=== PATIENT | female | born 1935 | race Caucasian/White ===

== ENCOUNTER → 2019-11-17 | Outpatient (CLI) | payer MEDICARE | LOC: CARD 09:59 | PROVIDERS: ATTEND Nurse Practitioner Family | DX: I49.9 Cardiac arrhythmia, unspecified (principal); I10 Essential (primary) hypertension; R53.83 Other fatigue; I08.0 Rheumatic disorders of both mitral and aortic valves | CPT/HCPCS: 93306 ==

== ENCOUNTER 2020-01-03 09:49 | Outpatient (RCR) | payer MEDICARE | END 2020-04-02 | disposition home or self-care (01) | LOC: CARD 09:49 | PROVIDERS: ATTEND Internal Medicine Cardiovascular Disease | DX: I34.0 Nonrheumatic mitral (valve) insufficiency (principal); I10 Essential (primary) hypertension; I49.2 Junctional premature depolarization | CPT/HCPCS: 93225; 93226 ==

== ENCOUNTER → 2020-03-13 | Outpatient (CLI) | payer MEDICARE ==
[~2020-03-13] VITALS: Ht 152 cm; Wt 37.0 kg
[~2020-03-13] MED LIST: CATHETER FLUSH 10 ML SYR IV PRN; REGADENOSON 0.4 MG/5 ML SYR (LEXISCAN) IV ONE
[2020-03-13 09:06] VITALS: BP 206/73
--- NOTE | 2020-03-13 12:54 | Cardiology Stress Test Report ---
Stress Test Report Date of Procedure/Referring: Date of Procedure: Mar 13, 2020 PCP Alyse Weinstein MD Admitting Physician No,Local Physician Indications: Dyspnea, palpitation Baseline Heart Rate: 75 Baseline Blood Pressure: Blood Pressure Systolic: 206 Blood Pressure Diastolic: 73 Baseline Vitals Vital Signs Date Time Temp Pulse Resp B/P (MAP) Pulse Ox O2 Delivery O2 Flow Rate FiO2 03/13/20 09:06 75 206/73 (117) 99 Baseline EKG: Baseline EKG: normal sinus rhythm Summary After explaining the procedure to the patient, she signed a consent and then brought to the stress nuclear laboratory. Patient received 0.4 mg Lexiscan for stress test, ECG, heart rate and blood pressure were monitored continuously. Resting and stress dose of radio tracer were injected, imaging was acquired and reviewed in short axis, horizontal long axis and vertical long axis views. TID: 1.03 SSS: 6 SDS: 6 EF: 66 1. Patient tolerated Lexiscan well 2. Breast attenuation with mild decrease uptake involving the apical segment of the anterior lateral and inferolateral wall with mild reversibility, probably due to breast attenuation with no significant ischemia or infarction 3. Normal left ventricular size, EF 66 percent ALYSE WEINSTEIN MD Mar 13, 2020 12:54
== END ==
LOC: CARD 07:45
PROVIDERS: ATTEND Internal Medicine Cardiovascular Disease
DX: I10 Essential (primary) hypertension (principal); R06.00 Dyspnea, unspecified; R00.2 Palpitations
CPT/HCPCS: 78452; 93017; A9502

== ENCOUNTER 2020-05-15 09:00 | Day surgery (SDC) | payer MEDICARE, OTHER ==
[2020-05-15] VITALS (9 sets, daily range): BP systolic 92–185; BP diastolic 52–83
[~2020-05-15] VITALS: Ht 152 cm; Wt 39.0 kg
[2020-05-15 07:37] LABS: HEMOGLOBIN 13.4 g/dL (11.5-16.0); MEAN PLATELET VOLUME 9.7 fL (9.0-12.2); WHITE BLOOD COUNT 6.6 10^3/uL (4.3-11.0)
[2020-05-15 07:51] LABS: PROTHROMBIN TIME PATIENT 13.3 SEC (12.2-14.7)
--- NOTE | 2020-05-15 08:00 | Diagnostic Imaging Report ---
CHEST 1 VIEW, AP/PA ONLY Indication: Shortness of breath, abnormal stress test Comparison: None available. Findings: Hyperaerated lung volume. Ill-defined nodular opacities in the right midlung zone. Posterior lower lobes are suboptimally evaluated by portable radiography. No pleural effusion or pneumothorax. Normal cardiac mediastinal silhouette. Impression: 1. Right midlung zone ill-defined opacity could be due to an infectious process. Dictated by: Dictated on workstation # [id number]
[2020-05-15 08:01] LABS: ALBUMIN 4.3 GM/DL (3.2-4.5); BILIRUBIN,TOTAL 0.5 MG/DL (0.1-1.0); CALCIUM 9.3 MG/DL (8.5-10.1); CREATININE SERUM 1.07 MG/DL (0.60-1.30); POTASSIUM 3.9 MMOL/L (3.6-5.0); TOTAL PROTEIN 7.6 GM/DL (6.4-8.2)
[~2020-05-15 09:00] MED LIST changes: +ASPI325T32 PO; -CATHETER FLUSH 10 ML SYR IV PRN; +HEParin (CATH LAB) 2,000 ML IV ONE; +LEVO75CA5 PO; +LIDOCAINE 1% INJ 20 ML 20 ML VIAL ONE; +LOSA50TA63 PO; +METO-351 PO; +MIDAZOLAM 5 MG/5 ML (VERSED) VIAL ONE; +MIRT15TA6 PO; +NS IV 1000 ML 1,000 ML IV SCH; +NS IV 1000 ML 1,000 ML ONE; +PEG15DRO9 OU; -REGADENOSON 0.4 MG/5 ML SYR (LEXISCAN) IV ONE; +ZOLP6.2538 PO; +fentaNYL INJECTION 100 MCG/2 ML AMP ONE
--- NOTE | 2020-05-15 11:16 | Cardiac Procedure Note-CS/ASA ---
Pre-Procedure Note Pre-Op Procedure Note H&P Reviewed The H&P was reviewed, patient examined and no changes noted. Date H&P Reviewed: May 15, 2020 Time H&P Reviewed: 11:16 Conscious Sedation Pre-Proced Time 11:16 ASA Score 3 For ASA 3 and 4: Consider anesthesia and medical clearance. Also, for patients with a history of failed moderate sedation consider anesthesia. Airway Lungs Heart ASA score ASA 1: a normal healthy patient ASA 2: a patient with a mild systemic disease (mid diabetes, controlled hypertension, obesity x ASA 3: a patient with a severe systemic disease that limits activity (angina, COPD, prior Myocardial infarction) ASA 4: a patient with an incapacitating disease that is a constant threat to life (CHF, renal failure) ASA 5: a moribund patient not expected to survive 24 hrs. (ruptured aneurysm) ASA 6: a declared brain- patient whose organs are being harvested. For emergent operations, add the letter E after the classification Mallampati Classification Grade 3 Sedation Plan Analgesia, Amnesia, Plan communicated to team members, Discussed options with patient/fam, Discussed risks with patient/fam The patient is an appropriate candidate to undergo the planned procedure, sedation, and anesthesia. The patient immediately re-assessed prior to indication. ALYSE BARRIENTOS MD May 15, 2020 11:16
--- NOTE | 2020-05-15 11:18 | Discharge Inst-Post CATH ---
Discharge Inst-CATH/EP Problems Reviewed?: Yes Post Cardiac Cath/EP D/C Inst Follow Up/Plan Appointment with Dr. Weinstein's office in 4 weeks <b>CARDIAC CATH/EP PROCEDURE DISCHARGE INSTRUCTIONS</b> ACTIVITY * Go Home directly and rest. * Limit activity of the leg (or wrist if it was used) for 7 days including aerobics, swimming, jogging, bicycling, etc. * Restrict stair-climbing for 7 days if possible, if not, climb up with your non-cath leg, then bring together on the same step. * Avoid lifting, pushing, pulling or excessive movement of the affected extremity for 7 days. * Customary sexual activity may be resumed after 2 days-use caution not to use a position that strains or causes pain to the affected extremity. * No driving for 24 hours. * NO SMOKING. * Avoid straining for bowel movements for 7 days. * Gentle walking on level ground is allowed. * Returning to work will depend on the type of procedure and the results. Your doctor will discuss this with you. CALL YOUR DOCTOR FOR ANY OF THE FOLLOWING: *If bleeding from the puncture site occurs- Apply gentle pressure to site with clean cloth and call your doctor or EMS. * If a knot or lump forms under the skin, increases in size, or causes pain. * If bruising appears to be worsening or moving further down your leg instead of disappearing. * Temperature above 101 F. CARE OF YOUR GROIN INCISION; * Bruising or purple discoloration of the skin near the puncture site is common. * You may shower only, no bathtub bathing for 5 days. Be careful to avoid slipping as your leg may feel stiff. * If a closure device was used on your femoral artery, please see the attached guide regarding care of the device and your leg. * Leave dressing on FOR 24 hours. CARE OF YOUR WRIST INCISION; * Bruising or purple discoloration of the skin near the puncture site is common. * You may shower. * DO NOT submerge wrist. * Leave dressing on FOR 24 hours. ALYSE WEINSTEIN MD May 15, 2020 11:18
--- NOTE | 2020-05-15 11:22 | Cardiac Cath Report ---
Cardiac Cath Report Physician (s)/Web Publisher (s) Physician ALYSE BARRIENTOS MD Pre-Procedure Diagnosis Pre-Procedure Diagnosis: coronary artery disease Post-Procedure Note Procedure Start Date: May 15, 2020 Name of Procedure: Left heart catheterization Left ventriculogram Aortic arch angiogram Findings/Procedure Note PROCEDURE NOTE: 84-year-old lady with history of hypertension, hyperlipidemia, has been having chest pain, had an abnormal stress test, scheduled for cardiac catheterization possible PTCA After explaining the procedure to the patient, all pros and cons were explained, all questions were answered. The patient signed the consent and then she was placed on the cardiac catheterization laboratory. Groin was prepped SL fashion local anesthesia was used. Sheath placed in the right femoral artery. Darrel right and left catheter were used to access the coronary system. Pigtail was used to access the left ventricular cavity. Left ventriculogram was done Aortic arch angiogram was done At the end of the procedure the sheath was removed. Closure device was used FINDINGS: Hemodynamics LV 145/12, end-diastolic pressure of 12 Aorta 142/52 mean of 87 ANATOMY: Left Main is severe distal stenosis Left Anterior Descending severe ostial stenosis with mild to moderate disease diffusely Left Circumflex has moderate proximal disease nonobstructive disease Right Coronory Artery is small artery with mild disease nonobstructive disease LV Gram was done showing normal left ventricular size and systolic function estimated ejection fraction 50 percent Aorta evaluation done with aortic arch angiogram showing normal aortic arch, no dissection, no aneurysm, normal origin of the innominate artery, left carotid and left subclavian arteries CONCLUSION: 1. Severe distal left main coronary artery stenosis involving the ostium of the LAD, otherwise mild to moderate disease 2. Normal left ventricular size with preserved systolic function estimated ejection fraction 50 percent 3. Mild hypertensive changes in the thoracic aorta, no dissection or aneurysm, normal great vessels of the neck DISCUSSION AND RECOMMENDATION: Patient has severe distal left main coronary artery stenosis that require referral for evaluation for bypass surgery, she did not qualify for bypass would consider referral for high risk left main coronary artery stent Incidental finding pulmonary nodule was reported on her chest x-ray, I'll refer her for evaluation with her primary care physician Anesthesia Type: Conscious Sedation Estimated blood loss (mL): 25 ml Contrast Amount: 73 ml Total Radiation Dose: 55 mGy Post-Procedure Diagnosis Post-operative diagnosis: Chest pain Coronary artery disease Hypertension Hyperlipidemia ALYSE BARRIENTOS MD May 15, 2020 11:22 am
--- NOTE | 2020-05-15 11:22 | NUR ---
SPOKE WITH THE PT AND CALLED [facility] TO COMPLETE THE MED REC WHEN I ASKED THE PT ABOUT HER MEDICATIONS SHE WAS NOT ABLE TO GIVE ME ANY INFORMATION - ALL SHE COULD TELL ME WAS THAT SHE TAKES 2 BLOOD PRESSURE MEDS, ONE FOR HER THYROID AND 2 AT BEDTIME TO HELP HER SLEEP. I USED THE MED LIST FROM CARDIOLOGY TO NAME WHAT THEY HAVE ON FILE AND THE PT AGREED WITH THE MED LIST. FILL DATES FROM [facility]: 02-19-2020 LEVOTHYROXINE 75MCG #90/90DS 03-05-2020 MIRTAZAPINE 15MG #90/90DS 04-01-2020 METOPROLOL SUCC 25MG #90/90DS 04-25-2020 ZOLPIDEM ER 6.25MG #28/28DS 05-06-2020 LOSARTAN 50MG #DS OTC MEDS: ASPIRIN 325MG VISINE DRY EYE DROPS
[2020-05-15] MEDS ORDERED: PATIENT MAY USE OWN MEDS, ALL PO SCH (11:30)
[2020-05-15] MEDS ORDERED: NS IV 1000 ML 1,000 ML IV SCH (11:30)
--- NOTE | 2020-05-15 12:41 | Pulmonary Consultation ---
History of Present Illness History of Present Illness Date Seen by Provider: May 15, 2020 Time Seen by Provider: 12:36 Date of Admission Allergies and Home Medications Allergies Coded Allergies: No Known Drug Allergies (Unverified , 05/15/20) Home Medications Aspirin 325 Mg Tablet.dr, 325 MG PO DAILY PRN for PAIN-MILD (1-4), (Reported) Levothyroxine Sodium 75 Mcg Capsule, 75 MCG PO DAILY, (Reported) Losartan Potassium 50 Mg Tablet, 50 MG PO DAILY, (Reported) Metoprolol Succinate 25 Mg Tab.er.24h, 25 MG PO DAILY, (Reported) Mirtazapine 15 Mg Tablet, 15 MG PO HS, (Reported) Peg 400/Hypromellose/Glycerin 15 Ml Drops, 2 DROPS OU PRN PRN for DRY EYES, (Reported) Zolpidem Tartrate 6.25 Mg Tab.mphase, 6.25 MG PO HS, (Reported) Past [facility]el[facility] Hx Patient Social History Alcohol Use: Denies Use Recreational Drug Use: No Smoking Status: Former Smoker Immunizations Up To Date Date of Pneumonia Vaccine: May 15, 2017 Date of Influenza Vaccine: May 01, 2020 Past Medical History Hysterectomy Respiratory: Yes (SOB) Cardiac: Yes Coronary Artery Disease, Hypertension Neurological: Yes Stroke Genitourinary: Yes (FREQUENCY) Gastrointestinal: No Cancer: No Sepsis Event Evaluation Height, Weight, BMI Height: '" Weight: lbs. oz. kg; 16.88 BMI Method: Exam Exam Vital Signs Date Time Temp Pulse Resp B/P (MAP) Pulse Ox O2 Delivery O2 Flow Rate FiO2 05/15/20 07:33 36.2 75 16 185/83 (117) 95 Room Air Height & Weight Height: '" Weight: lbs. oz. kg; 16.88 BMI Method: Results Lab Laboratory Tests 05/15/20 07:30 Assessment/Plan Assessment/Plan RML with hx of MAC -Pt is asymptomatic. -Will f/u with her as an out pt S/P cath Hx of tabacco use MADAY FERNANDO DO May 15, 2020 12:41
== END 2020-05-15 15:45 ==
LOC: CATH 09:00 → SDC 11:32 → CATH 15:45
PROVIDERS: ATTEND Internal Medicine Cardiovascular Disease
DX: I25.10 Atherosclerotic heart disease of native coronary artery without angina pectoris (principal); I10 Essential (primary) hypertension; E78.5 Hyperlipidemia, unspecified; Z79.82 Long term (current) use of aspirin; Z87.891 Personal history of nicotine dependence; Z79.899 Other long term (current) drug therapy; Z90.710 Acquired absence of both cervix and uterus
CPT/HCPCS: 36221; 71045; 80053; 80061; 85027; 85610; 85730; 87081; 93458; C1760; C1894; 36415

== ENCOUNTER → 2020-07-29 | Outpatient (CLI) | payer MEDICARE, OTHER ==
[~2020-07-29] MED LIST changes: +CATHETER FLUSH 10 ML SYR IV PRN; -HEParin (CATH LAB) 2,000 ML IV ONE; +HOLD METFORMIN - RECEIVED CONTRAST 20 ML VIAL IV SCH; -LIDOCAINE 1% INJ 20 ML 20 ML VIAL ONE; -MIDAZOLAM 5 MG/5 ML (VERSED) VIAL ONE; +NS 100 ML (IVPB) BAG IV ONE; -NS IV 1000 ML 1,000 ML IV SCH; -NS IV 1000 ML 1,000 ML ONE; +RT-ALBUTEROL SULF 2.5 MG/3 ML PRE-MIX VIAL INH ONE; -fentaNYL INJECTION 100 MCG/2 ML AMP ONE
[2020-07-29 10:29] LABS: BUN/CREATININE RATIO 18; CREATININE SERUM 0.87 MG/DL (0.60-1.30); GFR ESTIMATED > 60
[2020-07-29] MEDS: IOHEXOL 350 MG/ML 100 ML (OMNIPAQUE 350) VIAL IV ONE ×2 (11:25→11:31)
--- NOTE | 2020-07-29 13:43 | Diagnostic Imaging Report ---
EXAMINATION: CT Chest with intravenous contrast. TECHNIQUE: Multiple contiguous axial images were obtained through the chest after the uneventful administration of intravenous contrast. All CT scans use one or more of the following dose optimizing techniques: automated exposure control, MA and/or KvP adjustment based on a patient size and exam type, or iterative reconstruction. HISTORY: Shortness of breath COMPARISON: None available. FINDINGS: There is no edema or pneumonia. No pleural effusion. No pneumothorax. There is anterior right upper lobe bronchiectasis, mucous plugging and centrilobular/tree-in-bud nodules. There is mucous in the trachea. There is no axillary or supraclavicular lymphadenopathy. Prominent mediastinal lymph nodes which are likely reactive measuring 10 mm and smaller. Heart size is normal. There are severe coronary artery calcifications. No pericardial effusion. Aorta is normal in caliber. Limited views of the upper abdomen are unremarkable. There are no suspicious osseus lesions. IMPRESSION: 1. Anterior right upper lobe bronchiectasis, mucous plugging and centrilobular/tree-in-bud nodules associated with mucus in the trachea. 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 Dictated by: Dictated on workstation # [id number]
== END ==
LOC: RT 09:45
PROVIDERS: ATTEND Nurse Practitioner Family
DX: Z13.83 Encounter for screening for respiratory disorder NEC (principal); J47.9 Bronchiectasis, uncomplicated; J39.8 Other specified diseases of upper respiratory tract; J98.09 Other diseases of bronchus, not elsewhere classified
CPT/HCPCS: 36415; 71260; 82565; 84520; 94060; 94726; 94729

== ENCOUNTER 2020-09-05 05:38 | Outpatient (CLI) | payer MEDICARE ==
[~2020-09-05] VITALS: Ht 152.4 cm; Wt 38.1 kg
== END 2020-09-05 13:47 | disposition home or self-care (01) ==
LOC: PREOP 05:38
PROVIDERS: ATTEND Internal Medicine Critical Care Medicine
DX: Z01.818 Encounter for other preprocedural examination (principal)

== ENCOUNTER → 2020-09-05 | Outpatient (CLI) | payer MEDICARE ==
[~2020-09-05] MED LIST changes: -CATHETER FLUSH 10 ML SYR IV PRN; -HOLD METFORMIN - RECEIVED CONTRAST 20 ML VIAL IV SCH; -NS 100 ML (IVPB) BAG IV ONE; -RT-ALBUTEROL SULF 2.5 MG/3 ML PRE-MIX VIAL INH ONE
== END ==
LOC: LABNPT 06:50
PROVIDERS: ATTEND Nurse Practitioner Family
DX: Z53.9 Procedure and treatment not carried out, unspecified reason (principal)

== ENCOUNTER → 2020-09-10 | Outpatient (CLI) | payer MEDICARE | LOC: LABNPT 05:37 | PROVIDERS: ATTEND Nurse Practitioner Family | DX: Z01.89 Encounter for other specified special examinations (principal) ==

== ENCOUNTER 2020-09-12 07:16 | Day surgery (SDC) | payer MEDICARE, OTHER ==
[2020-09-12] VITALS (13 sets, daily range): BP systolic 132–215; BP diastolic 58–105
[~2020-09-12] VITALS: Ht 152.4 cm; Wt 38.1 kg
[~2020-09-12 07:16] MED LIST changes: +NS IV 500 ML 500 ML ONE
[2020-09-12] MEDS ORDERED: LIDOCAINE PF 2% 5 ML (XYLOCAINE) VIAL INJ ONE (07:17)
[2020-09-12] MEDS ORDERED: LIDOCAINE PF 1% 2 ML AMP IJ ONE (07:17)
[2020-09-12] MEDS ORDERED: LIDOCAINE JELLY 2% 6 ML SYRINGE MM ONE (07:17)
[2020-09-12] MEDS ORDERED: fentaNYL INJ 100 MCG/2 ML AMP IVP ONE (07:30)
[2020-09-12] MEDS ORDERED: NS IV 500 ML 500 ML IV PRN (07:30)
[2020-09-12] MEDS ORDERED: MIDAZOLAM 5 MG/5 ML (VERSED) VIAL IV ONE (07:30)
[2020-09-12] MEDS ORDERED: MIDAZOLAM 5 MG/5 ML (VERSED) VIAL ONE ×2 (07:34)
[2020-09-12] MEDS ORDERED: fentaNYL INJ 100 MCG/2 ML AMP ONE ×2 (07:34→07:35)
--- NOTE | 2020-09-12 07:58 | Progress Note-Pre Operative ---
Pre-Operative Progress Note H&P Reviewed The H&P was reviewed, patient examined and no changes noted. Time Seen by Provider: 07:58 Date H&P Reviewed: Sep 12, 2020 Time H&P Reviewed: 07:58 Pre-Operative Diagnosis: mucous plugging and infiltration MADAY FERNANDO DO Sep 12, 2020 07:58
--- NOTE | 2020-09-12 07:58 | Pre-Op Note & Conscious Sedat ---
Pre-Operative Progress Note H&P Reviewed The H&P was reviewed, patient examined and no changes noted. Date H&P Reviewed: Sep 12, 2020 Time H&P Reviewed: 07:58 Conscious Sedation Pre-Proced Time 07:58 ASA Score 3 For ASA 3 and 4: Consider anesthesia and medical clearance. Also, for patients with a history of failed moderate sedation consider anesthesia. Airway Lungs Heart ASA score ASA 1: a normal healthy patient ASA 2: a patient with a mild systemic disease (mid diabetes, controlled hypertension, obesity ASA 3: a patient with a severe systemic disease that limits activity (angina, COPD, prior Myocardial infarction) ASA 4: a patient with an incapacitating disease that is a constant threat to life (CHF, renal failure) ASA 5: a moribund patient not expected to survive 24 hrs. (ruptured aneurysm) ASA 6: a declared brain- patient whose organs are being harvested. For emergent operations, add the letter E after the classification Mallampati Classification Grade 3 Sedation Plan Analgesia, Amnesia, Plan communicated to team members, Discussed options with patient/fam, Discussed risks with patient/fam The patient is an appropriate candidate to undergo the planned procedure, sedation, and anesthesia. The patient immediately re-assessed prior to indication. MADAY FERNANDO DO Sep 12, 2020 07:58
--- NOTE | 2020-09-12 08:31 | Pulmonary Procedures ---
Pulmonary Procedures Date of Procedure Date of Service: Sep 12, 2020 Bronch Bronchoscopy with bronchoalveolar lavage (BAL), bilateral washes. Preop DX Mucous plugging Postop DX: same Complications: none After informed consent obtained and formal time out pt was sedated using Fentanyl and Versed. Bronchoscope was advanced through the nare and vocal cords. 1% lidocaine was used to anesthetize vocal cords, epiglottis, sanjana, and left/right main stem bronchus. An anatomical tour was undertaken down to the segmental bronchi bilaterally. No endobronchial lesions noted.Bronchoscopy with bronchoalveolar lavage (BAL), bilateral washes were obtained. Pt tolerated procedure well. No complications noted. Stat CXR is pending. MADAY FERNANDO DO Sep 12, 2020 08:31
--- NOTE | 2020-09-12 09:03 | Diagnostic Imaging Report ---
INDICATION: Follow-up bronchoscopy PORTABLE CHEST at 8:47 AM FINDINGS: There is infiltrate present in the right mid and lower lung. There is no effusion or pneumothorax. IMPRESSION: Right perihilar infiltrate. Dictated by: Dictated on workstation # [id number]
== END 2020-09-12 09:25 | disposition home or self-care (01) ==
LOC: ENDO 07:16
PROVIDERS: ATTEND Internal Medicine Critical Care Medicine
DX: J40 Bronchitis, not specified as acute or chronic (principal); J98.4 Other disorders of lung; J47.9 Bronchiectasis, uncomplicated; J43.9 Emphysema, unspecified; I25.10 Atherosclerotic heart disease of native coronary artery without angina pectoris; R06.00 Dyspnea, unspecified; G47.36 Sleep related hypoventilation in conditions classified elsewhere; Z79.82 Long term (current) use of aspirin; Z79.890 Hormone replacement therapy; Z79.899 Other long term (current) drug therapy; Z87.891 Personal history of nicotine dependence; Z90.710 Acquired absence of both cervix and uterus; Z90.89 Acquired absence of other organs; Z99.89 Dependence on other enabling machines and devices; Z82.49 Family history of ischemic heart disease and other diseases of the circulatory system
CPT/HCPCS: 71045; 87015; 87070; 87077; 87101; 87106; 87116; 87186; 87205; 87206; 88112; 88305; 88312

== ENCOUNTER → 2020-10-10 | Outpatient (CLI) | payer MEDICARE, OTHER ==
[~2020-10-10] MED LIST changes: +CATHETER FLUSH 10 ML SYR IV PRN; +HOLD METFORMIN - RECEIVED CONTRAST 20 ML VIAL IV SCH; +IOHEXOL 350 MG/ML 100 ML (OMNIPAQUE 350) VIAL IV ONE; +NS 100 ML (IVPB) BAG IV ONE; -NS IV 500 ML 500 ML ONE
[2020-10-10 09:04] LABS: BUN/CREATININE RATIO 22; CREATININE SERUM 0.73 MG/DL (0.60-1.30); GFR ESTIMATED > 60
--- NOTE | 2020-10-10 11:29 | Diagnostic Imaging Report ---
PROCEDURE: CT chest with contrast only. TECHNIQUE: Multiple contiguous axial images were obtained through the chest after administration of intravenous contrast. Auto Exposure Controls were utilized during the CT exam to meet ALARA standards for radiation dose reduction. INDICATION: Pneumonia. FINDINGS: Anterior right upper lobe segmental bronchiectasis with mucoid impaction of ectatic airways is noted with regional tree-in-bud nodularity and infiltrates largely unchanged from the prior. Findings remain suggestive of chronic endobronchial infection owing to process such as mycobacterium avium complex. No pneumothorax. No airspace consolidation. No new pulmonary pathology. There is coronary artery atherosclerosis. The aorta is atherosclerotic but patent and nonaneurysmal. No central pulmonary arterial filling defect. No acute chest wall pathology. No lymphadenopathy. Upper abdomen shows some scarring and volume loss in the right renal upper pole with no acute appearing upper abdominal abnormality. IMPRESSION: 1. 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 No findings of disease progression or new abnormality. No features suggestive of a superimposed acute bacterial pneumonia. 2. No acute vascular pathology or pleural disease. Dictated by: Dictated on workstation # [id number]
== END ==
LOC: RAD FS 08:25
PROVIDERS: ATTEND Nurse Practitioner Family
DX: J18.9 Pneumonia, unspecified organism (principal)
CPT/HCPCS: 36415; 71260; 82565; 84520

== ENCOUNTER → 2021-09-10 | Outpatient (CLI) | payer MEDICARE ==
[~2021-09-10] VITALS: Ht 152 cm; Wt 36.0 kg
[~2021-09-10] MED LIST changes: -CATHETER FLUSH 10 ML SYR IV PRN; +CATHETER FLUSH 10 ML SYR IVP PRN; -HOLD METFORMIN - RECEIVED CONTRAST 20 ML VIAL IV SCH; -IOHEXOL 350 MG/ML 100 ML (OMNIPAQUE 350) VIAL IV ONE; +MIRT-68 PO; -MIRT15TA6 PO; -NS 100 ML (IVPB) BAG IV ONE; +REGADENOSON 0.4 MG/5 ML SYR (LEXISCAN) IV ONE
[2021-09-10 09:01] VITALS: BP 174/102
--- NOTE | 2021-09-10 13:43 | Cardiology Stress Test Report ---
Stress Test Report Date of Procedure/Referring: Date of Procedure: Sep 10, 2021 PCP Alyse Weinstein MD Admitting Physician Brooklyn Stanton Aprn Indications: CP Baseline Heart Rate: 64 Baseline Blood Pressure: Blood Pressure Systolic: 174 Blood Pressure Diastolic: 102 Baseline Vitals Vital Signs Date Time Temp Pulse Resp B/P (MAP) Pulse Ox O2 Delivery O2 Flow Rate FiO2 09/10/21 09:01 105 20 174/102 (126) Baseline EKG: Baseline EKG: NSR Summary After explaining the procedure to the patient, she signed a consent and then brought to the stress nuclear laboratory. Patient received 0.4 mg Lexiscan for stress test, ECG, heart rate and blood pressure were monitored continuously. Resting and stress dose of radio tracer were injected, imaging was acquired and reviewed in short axis, horizontal long axis and vertical long axis views. TID: 1.1 SSS: 12 SDS: 6 EF: 57 1. Patient tolerated Lexiscan well 2. Reversible ischemia involving the anterolateral and inferolateral wall 3. Normal left ventricular size with mild hypokinesia of the lateral wall. Ejection fraction 57% ALYSE WEINSTEIN MD Sep 10, 2021 13:43
== END ==
LOC: CARD 07:30
PROVIDERS: ATTEND Internal Medicine Cardiovascular Disease
DX: R07.2 Precordial pain (principal); I10 Essential (primary) hypertension; I25.10 Atherosclerotic heart disease of native coronary artery without angina pectoris
CPT/HCPCS: 78452; 93017; A9502

== ENCOUNTER 2021-10-23 11:43 | Emergency (ER) | payer MEDICARE ==
[~2021-10-23] VITALS: Ht 157 cm; Wt 36.0 kg
[~2021-10-23 11:43] MED LIST changes: -CATHETER FLUSH 10 ML SYR IVP PRN; -REGADENOSON 0.4 MG/5 ML SYR (LEXISCAN) IV ONE
[2021-10-23 12:34] VITALS: BP 108/51
[2021-10-23 13:22] LABS: BASOPHILS % (AUTO) 0 % (0-10); EOSINOPHILS % (AUTO) 0 % (0-10); HEMATOCRIT 34 % (35-52); HEMOGLOBIN 11.7 g/dL (11.5-16.0); LYMPHOCYTES # (AUTO) 1.2 10^3/uL (1.0-4.0); LYMPHOCYTES % (AUTO) 7 % (12-44); MEAN CORPUSCULAR HEMOGLOBIN 29 pg (25-34); MEAN CORPUSCULAR HGB CONC 35 g/dL (32-36); MEAN CORPUSCULAR VOLUME 84 fL (80-99); MEAN PLATELET VOLUME 9.9 fL (9.0-12.2); MONOCYTES # (AUTO) 1.2 10^3/uL (0.0-1.0); MONOCYTES % (AUTO) 7 % (0-12); NEUTROPHILS # (AUTO) 14.4 10^3/uL (1.8-7.8); NEUTROPHILS % (AUTO) 85 % (42-75); PLATELET COUNT 229 10^3/uL (130-400)
[2021-10-23 13:37] LABS: ALBUMIN 3.9 GM/DL (3.2-4.5); POTASSIUM 4.4 MMOL/L (3.6-5.0)
[2021-10-23 13:38] LABS: CALCIUM 9.2 MG/DL (8.5-10.1)
[2021-10-23 13:40] LABS: CRENATED RBC SLIGHT; ELLIPT/OVALOCYTES SLIGHT; LYMPHOCYTES % (MANUAL) 6 %; MONOCYTES % (MANUAL) 11 %; NEUTROPHILS % (MANUAL) 83 %
[2021-10-23 13:41] LABS: BILIRUBIN,TOTAL 0.9 MG/DL (0.1-1.0)
[2021-10-23 13:43] LABS: CREATININE SERUM 1.08 MG/DL (0.60-1.30)
[2021-10-23] MEDS ORDERED: RT-ALBUTEROL HFA 8.5 GM INHALER IH STA (13:49)
--- NOTE | 2021-10-23 13:58 | Diagnostic Imaging Report ---
HISTORY: Shortness of air, influenza COMPARISON: 09/12/2020 TECHNIQUE: 2 views of the chest FINDINGS: Lung volumes are large. There is scarring in the lung apices. The cardiac silhouette is stable in size. There does appear to be mildly increased airspace opacity in the right lung base on the frontal view. There is flattening of the diaphragm. IMPRESSION: 1. Findings of chronic obstructive disease. Mildly increased right basilar opacity may be due to developing infiltrate. Dictated by: Dictated on workstation # [id number]
[2021-10-23] MEDS ORDERED: cefTRIAXone 1 GM PRE-MIX 50 ML IV STA (14:01)
[2021-10-23 15:37] LABS: BILIRUBIN,URINE NEGATIVE (NEGATIVE); CLARITY,URINE CLEAR; COLOR,URINE YELLOW; GLUCOSE, URINE (UA) NEGATIVE (NEGATIVE); KETONES,URINE NEGATIVE (NEGATIVE); LEUKOCYTE ESTERASE ,URINE 1+ (NEGATIVE); NITRITE,URINE NEGATIVE (NEGATIVE); PROTEIN,URINE 1+ (NEGATIVE)
[2021-10-23] MEDS ORDERED: CEFD300C3 PO (15:41)
[2021-10-23] MEDS ORDERED: AZIT250T12 PO (15:41)
[2021-10-23] MEDS ORDERED: OSLT75C PO (15:41)
--- NOTE | 2021-10-23 15:42 | ED General ---
General Chief Complaint: General Problems/Pain Stated Complaint: BACK / UPPER ABD PAIN Nursing Triage Note: PT HAS MULTIPLE COMPLAINTS OF GENERALIZED WEAKNESS, SOB, ABD AND BACK PAIN (NOT CURRENT), DEPRESSION AND JUST WANTS TO "SLEEP ALL THE TIME". Source of Information: Patient, Other (Dr. Weinstein and clinic chart) Exam Limitations: No Limitations History of Present Illness Date Seen by Provider: October 23, 2021 Time Seen by Provider: 11:46 Initial Comments This 86-year-old woman presents to the emergency room at the direction of Dr. Weinstein and his clinic for reasons of shortness of breath, cough, and recent fever. She has been having difficulty walking due to acute illness. She has been under evaluation with Dr. Weinstein for abnormal stress test and will likely have a cardiac catheterization planned for the near future. He is concerned about acute infectious illness and therefore sent her to the emergency room. Allergies and Home Medications Allergies Coded Allergies: No Known Drug Allergies (Unverified , 05/15/20) Patient Home Medication List Home Medication List Reviewed: Yes Aspirin (Aspirin EC) 325 Mg Tablet., 325 MG PO DAILY PRN for PAIN-MILD (1-4), (Reported) Entered as Reported by: VELMA HUITRON on 05/15/20836 Azithromycin (Azithromycin) 250 Mg Tablet, 250 MG PO UD Prescribed by: NICK HIGGINBOTHAM on 10/23/21 154 Cefdinir (Cefdinir) 300 Mg Capsule, 300 MG PO BID Prescribed by: NICK HIGGINBOTHAM on 10/23/21 1541 Levothyroxine Sodium (Levothyroxine) 75 Mcg Capsule, 75 MCG PO DAILY, (Reported) Entered as Reported by: VELMA HUITRON on 05/15/20 08 Losartan Potassium (Losartan Potassium) 50 Mg Tablet, 50 MG PO DAILY, (Reported) Entered as Reported by: VELMA HUITRON on 05/15/20836 Metoprolol Succinate (Toprol Xl) 25 Mg Tab.er.24h, 25 MG PO DAILY, (Reported) Entered as Reported by: VELMA HUITRON on 05/15/20836 Mirtazapine (Mirtazapine) 15 Mg Tablet, 15 MG PO HS, (Reported) Entered as Reported by: VELMA HUITRON on 05/15/20836 Oseltamivir Phosphate (Tamiflu) 75 Mg Cap, 75 MG PO BID Prescribed by: NICK HIGGINBOTHAM on 10/23/21 1541 Zolpidem Tartrate (Zolpidem Tartrate ER) 6.25 Mg Tab.mphase, 6.25 MG PO HS, (Reported) Entered as Reported by: VELMA HUITRON on 05/15/20 0837 Review of Systems Review of Systems Constitutional: chills, fever, weakness EENTM: no symptoms reported Respiratory: see HPI Cardiovascular: see HPI Gastrointestinal: no symptoms reported Genitourinary: no symptoms reported : No Musculoskeletal: no symptoms reported Skin: no symptoms reported Psychiatric/Neurological: No Symptoms Reported Hematologic/Lymphatic: No Symptoms Reported Immunological/Allergic: no symptoms reported Past Ybelygq-Nksumt-Bmxjjm Hx Patient Social History Tobacco Use?: No Tobacco type used: Cigarettes Smoking Status: Former Smoker Use of E-Cig and/or Vaping dev: No Substance use?: No Alcohol Use?: No Pt feels they are or have been: No Immunizations Up To Date Influenza Vaccine Up-to-Date: Yes; Up-to-Date First/Initial COVID19 Vaccinat: UNKNOWN Second COVID19 Vaccination Angelo: UNKNOWN Seasonal Allergies Seasonal Allergies: No Past Medical History Surgeries: Yes Coronary Stent, Hysterectomy, Tonsillectomy Respiratory: Yes (SOB) Cardiac: Yes Coronary Artery Disease, Hypertension Neurological: Yes Stroke Genitourinary: Yes (FREQUENCY) Gastrointestinal: No Musculoskeletal: No Endocrine: Yes Hypothyroidsim HEENT: No Cancer: No Psychosocial: No Physical Exam Vital Signs Vital Signs - First Documented 10/23/21 12:34 Temp 36.8 Pulse 93 Resp 20 B/P (MAP) 108/51 (70) O2 Delivery Room Air Capillary Refill : Less Than 3 Seconds Height, Weight, BMI Height: '" Weight: lbs. oz. 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 Skin: Normal Color, Warm/Dry Focused Exam Lactate Level 10/23/21 15:41: Lactic Acid Level 2.18*H Lactic Acid Level Laboratory Tests Test 10/23/21 15:41 Lactic Acid Level 2.18 MMOL/L (0.50-2.00) *H Progress/Results/Core Measures Suspected Sepsis SIRS Temperature: Pulse: 93 Respiratory Rate: 20 Laboratory Tests 10/23/21 12:47: White Blood Count 17.0H Blood Pressure 108 /51 Mean: 70 10/23/21 15:41: Lactic Acid Level 2.18*H Laboratory Tests 10/23/21 12:47: Creatinine 1.08, Platelet Count 229, Total Bilirubin 0.9 Results/Orders Lab Results Laboratory Tests Test 10/23/21 12:47 10/23/21 15:30 10/23/21 15:41 Range/Units White Blood Count 17.0 H 4.3-11.0 10^3/uL Red Blood Count 4.02 3.80-5.11 10^6/uL Hemoglobin 11.7 11.5-16.0 g/dL Hematocrit 34 L 35-52 % Mean Corpuscular Volume 84 80-99 fL Mean Corpuscular Hemoglobin 29 25-34 pg Mean Corpuscular Hemoglobin Concent 35 32-36 g/dL Red Cell Distribution Width 13.8 10.0-14.5 % Platelet Count 229 130-400 10^3/uL Mean Platelet Volume 9.9 9.0-12.2 fL Immature Granulocyte % (Auto) 1 % Neutrophils (%) (Auto) 85 H 42-75 % Lymphocytes (%) (Auto) 7 L 12-44 % Monocytes (%) (Auto) 7 0-12 % Eosinophils (%) (Auto) 0 0-10 % Basophils (%) (Auto) 0 0-10 % Neutrophils # (Auto) 14.4 H 1.8-7.8 10^3/uL Lymphocytes # (Auto) 1.2 1.0-4.0 10^3/uL Monocytes # (Auto) 1.2 H 0.0-1.0 10^3/uL Eosinophils # (Auto) 0.0 0.0-0.3 10^3/uL Basophils # (Auto) 0.0 0.0-0.1 10^3/uL Immature Granulocyte # (Auto) 0.1 0.0-0.1 10^3/uL Neutrophils % (Manual) 83 % Lymphocytes % (Manual) 6 % Monocytes % (Manual) 11 % Crenated Cell SLIGHT Elliptocytes SLIGHT Blood Morphology Comment NA Sodium Level 130 L 135-145 MMOL/L Potassium Level 4.4 3.6-5.0 MMOL/L Chloride Level 93 L 98-107 MMOL/L Carbon Dioxide Level 25 21-32 MMOL/L Anion Gap 12 5-14 MMOL/L Blood Urea Nitrogen 26 H 7-18 MG/DL Creatinine 1.08 0.60-1.30 MG/DL Estimat Glomerular Filtration Rate 49 BUN/Creatinine Ratio 24 Glucose Level 127 H 70-105 MG/DL Calcium Level 9.2 8.5-10.1 MG/DL Corrected Calcium 9.3 8.5-10.1 MG/DL Total Bilirubin 0.9 0.1-1.0 MG/DL Aspartate Amino Transf (AST/SGOT) 21 5-34 U/L Alanine Aminotransferase (ALT/SGPT) 14 0-55 U/L Alkaline Phosphatase 77 40-136 U/L C-Reactive Protein High Sensitivity 16.54 H 0.00-0.50 MG/DL B-Type Natriuretic Peptide 197.4 H <100.0 PG/ML Total Protein 7.0 6.4-8.2 GM/DL Albumin 3.9 3.2-4.5 GM/DL Procalcitonin 0.13 H <0.10 NG/ML Influenza Type A (RT-PCR) Detected H Not Detecte Influenza Type B (RT-PCR) Not Detected Not Detecte SARS-CoV-2 RNA (RT-PCR) Not Detected Not Detecte Urine Color YELLOW Urine Clarity CLEAR Urine pH 5.0 5-9 Urine Specific Martha 1.020 1.016-1.022 Urine Protein 1+ H NEGATIVE Urine Glucose (UA) NEGATIVE NEGATIVE Urine Ketones NEGATIVE NEGATIVE Urine Nitrite NEGATIVE NEGATIVE Urine Bilirubin NEGATIVE NEGATIVE Urine Urobilinogen 0.2 < = 1.0 MG/DL Urine Leukocyte Esterase 1+ H NEGATIVE Urine RBC (Auto) NEGATIVE NEGATIVE Urine RBC NONE /HPF Urine WBC 0-2 /HPF Urine Squamous Epithelial Cells 0-2 /HPF Urine Renal Epithelial Cells NONE /HPF Urine Crystals NONE /LPF Urine Bacteria NEGATIVE /HPF Urine Casts NONE /LPF Urine Mucus NEGATIVE /LPF Urine Culture Indicated NO Lactic Acid Level 2.18 *H 0.50-2.00 MMOL/L My Orders Orders - NICK NG MD Bnp [facility] (10/23/21 11:48) Cbc With Automated Diff (10/23/21 11:48) Comprehensive Metabolic Panel (10/23/21 11:48) Hs C Reactive Protein (10/23/21 11:48) Procalcitonin (Pct) (10/23/21 11:48) Ua Culture If Indicated (10/23/21 11:48) Covid 19 Inhouse Test (10/23/21 11:48) Influenza A And B By Pcr (10/23/21 11:48) Manual Differential (10/23/21 12:47) Chest Pa/Lat (2 View) (10/23/21 13:26) Albuterol Inhaler (Albuterol) (10/23/21 13:49) Blood Culture (10/23/21 14:01) Lactic Acid Analyzer (10/23/21 14:01) Ceftriaxone 1 Gm Pre-Mix (Rocephin 1 Gm (10/23/21 14:01) Vital Signs/I&O 10/23/21 12:34 Temp 36.8 Pulse 93 Resp 20 B/P (MAP) 108/51 (70) O2 Delivery Room Air Capillary Refill : Less Than 3 Seconds Blood Pressure Mean: 70 Progress Note : Progress Note Patient expresses a desire for a minimalist approach to care today. She does not want to wear oxygen. She is agreeable to work-up and is found to have both evidence of pneumonia by x-ray and labs as well as influenza a by nasal swab. She was treated initially with Rocephin in the ER and antibiotic prescriptions were provided. She was also prescribed Tamiflu. An inhaler was administered during her ER stay. Patient made it clear that she was not willing to wear supplemental oxygen. See discharge instructions for further discussion. Patient was stable for discharge and maintaining oxygen saturations at 93% on room air. She was given strict instructions for a low threshold to return to the emergency room for worsening of condition. Diagnostic Imaging Diagonstic Imaging: Xray Plain Films/CT/US/NM/MRI: chest Comments Chest x-ray viewed by me and report reviewed. See report below: NAME: ARIEL PYLE [facility] REC#: [id number] PT STATUS: DEP ER : [id number] PHYSICIAN: NICK NG MD ADMIT DATE: 10/23/21/ER Signed Date of Exam:10/23/21 CHEST PA/LAT (2 VIEW) HISTORY: Shortness of air, influenza COMPARISON: 09/12/2020 TECHNIQUE: 2 views of the chest FINDINGS: Lung volumes are large. There is scarring in the lung apices. The cardiac silhouette is stable in size. There does appear to be mildly increased airspace opacity in the right lung base on the frontal view. There is flattening of the diaphragm. IMPRESSION: 1. Findings of chronic obstructive disease. Mildly increased right basilar opacity may be due to developing infiltrate. Dictated by: Dictated on workstation # [id number] Dict: 10/23/21 1347 Trans: 10/23/21 1708 CV [id number] Interpreted by: CRISTO MORALES MD Electronically signed by: CRISTO MORALES MD 10/23/21 1708 Departure Impression Primary Impression: Influenza A Additional Impression: Right lower lobe pneumonia Qualified Codes: J18.9 - Pneumonia, unspecified organism Disposition: 01 HOME, SELF-CARE Condition: Stable Departure-Patient Inst. Decision time for Depature: 15:39 Referrals: KYLIE MALIN APRN (PCP/Family) Primary Care Physician Patient Instructions: Pneumonia, Adult ED, Flu Add. Discharge Instructions: Drink plenty of clear liquids to stay well-hydrated. Start Tamiflu and azithromycin (Z-Panfilo) as soon as you pick them up this afternoon. Start the cefdinir (Omnicef) tomorrow morning. Obtain a pulse oximeter and check your oxygen level a few times a day or anytime you have increased shortness of breath. If you have repeated oxygen levels less than 92% or any oxygen level less than 90%, please return to the emergency room. You may use your albuterol inhaler up to 4 puffs in a 4-hour period of time. This can be used for shortness of breath or wheezing. If you are requiring more than 4 puffs in 4 hours, please return to the emergency room promptly. Please follow-up with your primary care provider within 1 week. Call with questions or concerns. All discharge instructions reviewed with patient and/or family. Voiced understanding. Scripts Cefdinir (Cefdinir) 300 Mg Capsule 300 MG PO BID, #20 CAP 0 Refills Prov: NICK NG MD 10/23/21 Azithromycin (Azithromycin) 250 Mg Tablet 250 MG PO UD, #6 TAB TAKE 2 TABLETS ON DAY ONE THEN TAKE 1 TABLET DAILY FOR FOUR MORE DAYS Prov: NICK NG MD 10/23/21 Oseltamivir Phosphate (Tamiflu) 75 Mg Cap 75 MG PO BID, #10 CAP Prov: NICK NG MD 10/23/21 Copy Copies To 1: ALYSE WEINSTEIN MD Copies To 2: [facility]/NICK MACK MD October 23, 2021 15:42
[2021-10-23 15:45] LABS: BACTERIA,URINE NEGATIVE /HPF; SQUAMOUS EPITHELIAL CELL,UR 0-2 /HPF; WBC,URINE 0-2 /HPF
== END 2021-10-23 15:59 | disposition home or self-care (01) ==
LOC: EDUNIT# 11:43 → ER 11:46
DX: J10.00 Influenza due to other identified influenza virus with unspecified type of pneumonia (principal); Z87.891 Personal history of nicotine dependence; Z20.822 Contact with and (suspected) exposure to COVID-19
CPT/HCPCS: 36415; 71046; 80053; 81000; 83605; 83880; 84145; 85007; 85027; 86141; 87040; 87636; 99283

== ENCOUNTER 2022-01-09 16:56 | Emergency (ER) | payer MEDICARE ==
[~2022-01-09 16:56] MED LIST changes: +AZIT250T12 PO; +CEFD300C3 PO; +OSLT75C PO
--- NOTE | 2022-01-09 17:10 | ED Lower Extremity ---
General Chief Complaint: Lower Extremity Stated Complaint: KNOT ON R KNEE History of Present Illness Date Seen by Provider: Jan 09, 2022 Time Seen by Provider: 17:05 Initial Comments 86-year-old female worried about a "knot" on the medial aspect of her right knee. Patient reports that she had a knot down on the medial aspect of her right leg that they have a MRI scheduled for 01/12/2022. Patient feels like it moved up towards her knee. Patient complains of some mild knee pain in her right knee. She does not have any posterior calf pain. She is not currently having any leg swelling. She denies any known injury. Allergies and Home Medications Allergies Coded Allergies: No Known Drug Allergies (Unverified , 05/15/20) Patient Home Medication List Home Medication List Reviewed: Yes Aspirin (Aspirin EC) 325 Mg Tablet.dr, 325 MG PO DAILY PRN for PAIN-MILD (1-4), (Reported) Entered as Reported by: VELMA HUITRON on 05/15/20836 Azithromycin (Azithromycin) 250 Mg Tablet, 250 MG PO UD Prescribed by: NICK HIGGINBOTHAM on 10/23/21 154 Cefdinir (Cefdinir) 300 Mg Capsule, 300 MG PO BID Prescribed by: NICK HIGGINBOTHAM on 10/23/21 154 Levothyroxine Sodium (Levothyroxine) 75 Mcg Capsule, 75 MCG PO DAILY, (Reported) Entered as Reported by: VELMA HUITRON on 05/15/20836 Losartan Potassium (Losartan Potassium) 50 Mg Tablet, 50 MG PO DAILY, (Reported) Entered as Reported by: VELMA HUITRON on 05/15/20836 Metoprolol Succinate (Toprol Xl) 25 Mg Tab.er.24h, 25 MG PO DAILY, (Reported) Entered as Reported by: VELMA HUITRON on 05/15/20836 Mirtazapine (Mirtazapine) 15 Mg Tablet, 15 MG PO HS, (Reported) Entered as Reported by: VELMA HUITRON on 05/15/20 08 Oseltamivir Phosphate (Tamiflu) 75 Mg Cap, 75 MG PO BID Prescribed by: NICK HIGGINBOTHAM on 10/23/21 154 Zolpidem Tartrate (Zolpidem Tartrate ER) 6.25 Mg Tab.mphase, 6.25 MG PO HS, (Reported) Entered as Reported by: VELMA HUITRON on 05/15/20 0837 Review of Systems Constitutional: no symptoms reported EENTM: no symptoms reported Respiratory: no symptoms reported Cardiovascular: no symptoms reported Gastrointestinal: no symptoms reported Genitourinary: no symptoms reported Musculoskeletal: see HPI Skin: see HPI Psychiatric/Neurological: No Symptoms Reported Past Valtvwc-Trrmkq-Norjlh Hx Immunizations Up To Date First/Initial COVID19 Vaccinat: UNKNOWN Second COVID19 Vaccination Angelo: UNKNOWN Seasonal Allergies Seasonal Allergies: No Past Medical History Surgeries: Yes Coronary Stent, Hysterectomy, Tonsillectomy Respiratory: Yes (SOB) Cardiac: Yes Coronary Artery Disease, Hypertension Neurological: Yes Stroke Genitourinary: Yes (FREQUENCY) Gastrointestinal: No Musculoskeletal: No Endocrine: Yes Hypothyroidsim HEENT: No Cancer: No Psychosocial: No Physical Exam Vital Signs Capillary Refill : Height, Weight, BMI Height: '" Weight: lbs. oz. kg; 14.00 BMI Method: General Appearance: WD/WN, no apparent distress Neck: full range of motion, supple Cardiovascular: normal peripheral pulses, regular rate, rhythm, no edema Respiratory: lungs clear, normal breath sounds Gastrointestinal: non tender, no organomegaly Hips: bilateral hip non-tender Legs: bilateral leg non-tender, bilateral leg normal inspection, bilateral leg normal range of motion, bilateral leg no evidence of injury Knees: bilateral knee normal range of motion, bilateral knee no evidence of injury; right knee other (Very minimal to no knot or soft tissue swelling noted) Ankles: bilateral ankle normal inspection, bilateral ankle normal range of motion, bilateral ankle no evidence of injury Neurologic/Psychiatric: alert, normal mood/affect, oriented x 3 Skin: normal color, warm/dry Progress/Results/Core Measures Progress Progress Note : Progress Note Patient already has an MRI scheduled for 3 days from now. There is no signs of acute DVT or other deep vein thrombosis that would be concerning. I do not notice any swelling or significant knot on her knee. I recommend she could try warm moist heat and Lorne wrap if it feels like it is giving her some discomfort. She also use some Voltaren topical. Patient stable and discharged Departure Impression Primary Impression: Knee pain Qualified Codes: M25.561 - Pain in right knee Disposition: 01 HOME, SELF-CARE Condition: Stable Departure-Patient Inst. Referrals: KYLIE MALIN APRN (PCP/Family) Primary Care Physician Patient Instructions: Bursitis (DC), Knee Pain ED Add. Discharge Instructions: Voltaren topical cream as needed for pain use as directed on package Warm moist heat for 20 minutes 3-4 times daily Lorne wrap as needed for pain Please keep your appointment for your MRI on 01/12/2022 All discharge instructions reviewed with patient and/or family. Voiced understanding. TAISHA LOWRY DO Jan 09, 2022 17:10
[2022-01-09 17:18] VITALS: BP 148/68
== END 2022-01-09 17:18 | disposition home or self-care (01) ==
LOC: EDUNIT# 16:56 → ER FS 16:57
DX: M25.561 Pain in right knee (principal)
CPT/HCPCS: 99282

== ENCOUNTER → 2022-01-13 | Outpatient (CLI) | payer MEDICARE ==
[~2022-01-13] MED LIST changes: +GADOTERATE 0.5 MMOL/ML (CLARISCAN) 15 ML VIAL IV ONE
--- NOTE | 2022-01-13 14:54 | Diagnostic Imaging Report ---
EXAM: MRI right tibia and fibula without and with intravenous contrast. DATE: January 13, 2022. INDICATION: 86-year-old female, lump at the level of the right lower leg. COMPARISON: None. TECHNIQUE: Multiple dedicated pre and postcontrast MR sequences at the level of the right tibia and fibula were obtained. FINDINGS: A marker was placed at the area of focal concern which is medially and posteriorly located at the level of the distal tibial diaphysis centered approximately 11 cm proximal to the tibial plafond. At this location, there is fat signal within the tibialis posterior muscle without contrast enhancement or intramuscular edema. There is fat signal appears non-masslike and is favored to relate to focal fatty atrophy of the muscle rather than a lipoma. There is no additional abnormal intramuscular signal. There is no otherwise identified soft tissue mass. There is no focal fluid collection. There is no identified bone lesion. There is no acute fracture. There is no otherwise noted marrow signal abnormality. The imaged tendons are intact. IMPRESSION: Focal fat in the tibialis posterior muscle at area of palpable concern, most likely relating to focal fatty atrophy within the muscle rather than a lipoma. Dictated by: Dictated on workstation # [id number]
== END ==
LOC: RAD 12:47
PROVIDERS: ATTEND Nurse Practitioner Family
DX: R22.41 Localized swelling, mass and lump, right lower limb (principal)
CPT/HCPCS: 73720

== ENCOUNTER 2022-10-23 20:36 | Observation (INO) | payer MEDICARE ==
[~2022-10-23] VITALS: Ht 152.4 cm; Wt 36.5 kg
[~2022-10-23 20:36] MED LIST changes: -GADOTERATE 0.5 MMOL/ML (CLARISCAN) 15 ML VIAL IV ONE
--- NOTE | 2022-10-23 20:53 | ED Upper Extremity ---
General Stated Complaint: R ARM PAIN/SWELLING Source: patient, family (daughter) History of Present Illness Date Seen by Provider: October 23, 2022 Time Seen by Provider: 20:38 Initial Comments 87-year-old female presenting with complaints of pain and swelling to her right forearm. She states around 330 this afternoon she had picked up her dog and squeezed him against her. When she did this she developed a small hematoma to the right mid forearm. Her daughter confirmed that initially it was only about a half dollar size bruise. Then when she checked on her this evening around 8:00 her whole forearm was bruised and swollen. She still has intact sensation and good pulses to the right hand and arm. She has been trying to elevate the arm to help with pain and swelling. She denies any other injuries. She states that she is on 2 blood thinners because they have stents in her heart. Most recent one was placed in May 2022. She is unsure of what the pills are but says 1 is a small white one and the other was a small pink one. Onset: this afternoon Severity: severe Pain/Injury Location: right forearm Method of Injury: direct blow Modifying Factors: Worse With Movement Allergies and Home Medications Allergies Coded Allergies: No Known Drug Allergies (Unverified , 05/15/20) Patient Home Medication List Home Medication List Reviewed: Yes Aspirin (Aspirin EC) 325 Mg Tablet.dr, 325 MG PO DAILY PRN for PAIN-MILD (1-4), (Reported) Entered as Reported by: VELMA HUITRON on 05/15/20 08 Azithromycin (Azithromycin) 250 Mg Tablet, 250 MG PO UD Prescribed by: NICK HIGGINBOTHAM on 10/23/21 154 Cefdinir (Cefdinir) 300 Mg Capsule, 300 MG PO BID Prescribed by: NICK HIGGINBOTHAM on 10/23/21 154 Levothyroxine Sodium (Levothyroxine) 75 Mcg Capsule, 75 MCG PO DAILY, (Reported) Entered as Reported by: VELMA HUITRON on 05/15/20 08 Losartan Potassium (Losartan Potassium) 50 Mg Tablet, 50 MG PO DAILY, (Reported) Entered as Reported by: VELMA HUITRON on 05/15/20 08 Metoprolol Succinate (Toprol Xl) 25 Mg Tab.er.24h, 25 MG PO DAILY, (Reported) Entered as Reported by: VELMA HUITRON on 05/15/20 08 Mirtazapine (Mirtazapine) 15 Mg Tablet, 15 MG PO HS, (Reported) Entered as Reported by: VELMA HUITRON on 05/15/20836 Oseltamivir Phosphate (Tamiflu) 75 Mg Cap, 75 MG PO BID Prescribed by: NICK HIGGINBOTHAM on 10/23/21 1541 Zolpidem Tartrate (Zolpidem Tartrate ER) 6.25 Mg Tab.mphase, 6.25 MG PO HS, (Reported) Entered as Reported by: VELMA HUITRON on 05/15/20836 Review of Systems Constitutional: no symptoms reported EENTM: no symptoms reported Respiratory: no symptoms reported Cardiovascular: no symptoms reported Gastrointestinal: no symptoms reported Genitourinary: no symptoms reported Musculoskeletal: see HPI Skin: see HPI Psychiatric/Neurological: Denies Numbness, Denies Paresthesia Past Wgdbvjf-Wbndaj-Cyocwt Hx Patient Social History Tobacco Use?: No Immunizations Up To Date First/Initial COVID19 Vaccinat: UNKNOWN Second COVID19 Vaccination Angelo: UNKNOWN Third COVID19 Vaccination Date: UNKNOWN Seasonal Allergies Seasonal Allergies: No Past Medical History Surgery/Hospitalization HX: CAD with stents Surgeries: Yes Coronary Stent, Hysterectomy, Tonsillectomy Respiratory: Yes (SOB) Cardiac: Yes Coronary Artery Disease, Hypertension Neurological: Yes Stroke Genitourinary: Yes (FREQUENCY) Gastrointestinal: No Musculoskeletal: No Endocrine: Yes Hypothyroidsim HEENT: No Cancer: No Psychosocial: No Physical Exam Vital Signs Vital Signs - First Documented 10/23/22 20:43 Temp 36.7 Pulse 94 Resp 18 B/P (MAP) 190/88 (122) Pulse Ox 97 O2 Delivery Room Air Capillary Refill : Height, Weight, BMI Height: '" Weight: lbs. oz. kg; 14.00 BMI Method: General Appearance: WD/WN, no apparent distress Cardiovascular: normal peripheral pulses, regular rate, rhythm Respiratory: chest non-tender, lungs clear, normal breath sounds Elbow/Forearm: Right, ecchymosis (swollen distended ecchymosis to the right forearm that is tender to palpation and causing tightness of the soft tissues. Ecchymosis on flexor surface from elbow to the wrist), pain, soft tissue tenderness Hand: normal inspection, non-tender, normal ROM, Bilateral Neurologic/Tendon: normal sensation, normal motor functions, normal tendon f unctions Neurologic/Psychiatric: alert, oriented x 3 Skin: warm/dry, ecchymosis (right forearm) Progress/Results/Core Measures Results/Orders My Orders Orders - DAYANARA MAGANA MD Ed Admission (Communication) (10/23/22 21:20) Code/Resuscitation (10/23/22 21:20) Vital Signs/I&O 10/23/22 20:43 Temp 36.7 Pulse 94 Resp 18 B/P (MAP) 190/88 (122) Pulse Ox 97 O2 Delivery Room Air Progress Progress Note : Progress Note With patient having traumatic hematoma to the right forearm that has rapidly progressed from 330 this afternoon as well as 2 blood thinners for cardiac stents she is at risk of compartment syndrome and/or permanent nerve or vessel damage to the right forearm and upper extremity. At [address] PETER the on-call surgeon. He advised with the patient having had extensive of a hematoma and being on a blood thinner he requested admission to the primary care service and to try and keep the arm elevated as well as a snack but not tight Lorne wrap from the hand to the mid humerus. He would see the patient and likely evacuate the hematoma in the morning. 2055 I discussed the patient with Dr. Merrill the on-call hospitalist for [facility] service. He accepted the patient for admission for neurochecks and pain control overnight with surgery consult and treatment in the morning. When I updated the patient and daughter about the plan they were agreeable with the admission. The daughter was going to run back to the house and get the patient's medications. On the external medication history report there were no blood thinners listed. This way we can see what her regular medications are. In the meantime I personally applied a Lorne bandage to the right upper extremity from mid humerus to the hand. Patient was neurovascularly tendon intact both pre and post Lorne wrap bandage placement. Discussed with house painting instructor to arrange for a bed and every 2 hours neurovascular checks on the right upper extremity. If she has any changes overnight they would need to contact Dr. Merrill and/or Dr. PETER about more emergent treatment. In the meantime we will order hydrocodone/acetaminophen 5/325 1 pill every 6 hours as needed pain 1-5. For pain greater than 6 ordered fentanyl 25 mcg IV every 2 hours. As she will be n.p.o. after midnight ordered normal saline at 50 mils an hour. Bridge orders were written and placed and once we have a bed available for the patient the daughter was going to drive her down to [place] for admit. Departure Communication (Admissions) Time/Spoke to Admitting Phy: 20:56 2055 I discussed the patient with Dr. Merrill the on-call hospitalist for [facility] service. He accepted the patient for admission for neurochecks and pain control overnight with surgery consult and treatment in the morning. Time/Spoke to Consulting Phy: 20:[address] PETER the on-call surgeon. He advised with the patient having had extensive of a hematoma and being on a blood thinner he requested admission to the primary care service and to try and keep the arm elevated as well as a snack but not tight Lorne wrap from the hand to the mid humerus. He would see the patient and likely evacuate the hematoma in the morning. Impression Primary Impression: Traumatic hematoma of right forearm Qualified Codes: S50.11XA - Contusion of right forearm, initial encounter Disposition: 30 STILL A PATIENT Condition: Stable Admissions Decision to Admit Reason: Admit from ER (General) Decision to Admit/Date: October 23, 2022 Time/Decision to Admit Time: 20:56 Departure-Patient Inst. Referrals: KYLIE MALIN APRN (PCP/Family) Primary Care Physician DAYANARA MAGANA MD October 23, 2022 20:53
--- NOTE | 2022-10-23 23:26 | CONSULTATION REPORT ---
DATE OF SERVICE: 10/23/2022 ATTENDING PRIMARY LEADERSHIP DEVELOPMENT CONSULTANT: Brooklyn Stanton APRN ADMITTING PHYSICIAN: Gibran Merrill MD HISTORY OF PRESENT ILLNESS: The patient is an 87-year-old female who presented to [facility] with pain and swelling along the flexor aspect of the right forearm. She states that she picked up her dog this afternoon and squeezed dog against her and she then noticed a small area of ecchymosis that was slightly raised. This was initially small; however, over time had grown larger in size. She states that the pain is the chief complaint. She has full sensorium as well as motor function. She has palpable radial and ulnar pulse. There are no signs or symptoms of compartment syndrome. The patient does have a history of coronary artery disease and is on aspirin as well as two other anticoagulants; however, she cannot remember the medications that she is on. The patient will be evaluated and see if the hematoma would be appropriate for medical management and continued elevation and compression versus incision and evacuation of hematoma. PAST MEDICAL HISTORY: Coronary artery disease, hypertension, history of stroke, hypothyroid. PAST SURGICAL HISTORY: Hysterectomy, tonsillectomy, cardiac catheterization, and stent placement. ALLERGIES: No known drug allergies. MEDICATIONS: Aspirin 325 mg daily, azithromycin 250 mg every other day, cefdinir 300 mg b.i.d., levothyroxine 75 mcg daily, losartan 50 mg daily, metoprolol 25 mg daily, mirtazapine 15 mg daily, Tamiflu 75 mg b.i.d., zolpidem 6.25 mg each day at bedtime. SOCIAL HISTORY: Negative smoke, negative alcohol. FAMILY HISTORY: Noncontributory. VITAL SIGNS: Temperature 36.7, blood pressure 162/79, pulse 87, respirations 18, pulse ox 96% on room air. REVIEW OF SYSTEMS: The patient currently in no acute distress. She is not experiencing any shortness of breath or difficulty in breathing. No chest pain, palpitations, or diaphoresis. No nausea, vomiting. No diarrhea, no constipation. No fever, chills, no recent inadvertent weight loss. Right forearm swelling and pain with full motor function and normal sensorium. Move all digits without any difficulty. No fever, chills, no recent inadvertent weight loss. All other review of systems negative. PHYSICAL EXAMINATION: Will be ascertained upon examination of the patient in the a.m. The majority of patient information was accrued by the emergency room physician as well as the patient's electronic medical records. LABORATORY DATA: WBC 17.0, hemoglobin 11.7, hematocrit 34, platelets 229, BUN 26, creatinine 1.08. Urinalysis, 1+ leukocyte esterase. ASSESSMENT AND PLAN: An 87-year-old female with a superficial hematoma of the flexor surface of the right forearm. Instructions have been given to proceed with elevation to the level of the heart as well as a snug Lorne wrap starting at the hand and extending to the midshaft of the humerus. We will evaluate any changes that occur and if the hematoma does decrease in size, we may proceed with continued medical management; however, if the hematoma increases in size and continues to be symptomatic with pain, we may then proceed with an incision and evacuation of hematoma. Job ID: [id number] DocumentID: [id number] Dictated Date: 10/23/2022 22:56:35 Technician Support Engineer Date: 10/23/2022 23:24:00 Dictated By: STEPHANE PETER MD
[2022-10-23] MEDS ORDERED: fentaNYL INJ 100 MCG/2 ML AMP IV PRN (23:30)
[2022-10-23] MEDS ORDERED: NS IV 1000 ML 1,000 ML IV SCH (23:30)
[2022-10-23] MEDS ORDERED: HYDROcodone/APAP 5 MG/325 MG (LORTAB) TAB PO PRN (23:30)
[2022-10-23 23:54] VITALS: BP 151/70
[2022-10-24] MEDS ORDERED: LORA10TA7 PO (00:39)
[2022-10-24] MEDS ORDERED: ATOR20TA66 PO (00:39)
[2022-10-24] MEDS ORDERED: LOSA100T57 PO (00:39)
[2022-10-24] MEDS ORDERED: CLOP75TA28 PO (00:39)
[2022-10-24 03:52] VITALS: BP 148/70
[2022-10-24 07:41] VITALS: BP 188/77
[2022-10-24] MEDS ORDERED: LEVOTHYROXINE 75 MCG (LEVOTHROID) TABLET PO NR (08:30)
[2022-10-24] MEDS ORDERED: LOSARTAN 100 MG (COZAAR) TABLET PO SCH (09:00)
--- NOTE | 2022-10-24 09:10 | Short Stay Summary-Hospitalist ---
History of Present Illness HPI/Chief Complaint 87-year-old female presenting with complaints of pain and swelling to her right forearm. She states around 330 this afternoon she had picked up her dog and squeezed him against her. When she did this she developed a small hematoma to the right mid forearm. Her daughter confirmed that initially it was only about a half dollar size bruise. Then when she checked on her this evening around 8:00 her whole forearm was bruised and swollen. She still has intact sensation and good pulses to the right hand and arm. She has been trying to elevate the arm to help with pain and swelling. She denies any other injuries. She states that she is on 2 blood thinners because they have stents in her heart. Most recent one was placed in May 2022. She is unsure of what the pills are but says 1 is a small white one and the other was a small pink one. Upon my arrival the patient reports that she had no significant arm discomfort and that her swelling is gone down. While she had tested positive for influenza A she reports that she has felt well she has had no myalgia she lives independently and her daughter at the bedside confirms this. Daughter states that she has more energy than she does and no one else has been sick at home and to her knowledge there have been no exposures to anyone who has been ill. There is been no cough chest pain myalgia fever or confusion. She voiced no complaints wishing to go home. Date Seen 10/24/22 Time Seen by a Provider: 09:06 Attending Physician Fercho York MD PCP Admitting Physician: Elliot Nichols MD Attending Physician: Elliot Nichols MD Referring Physician Date of Admission October 23, 2022 at 22:44 Home Medications & Allergies Home Medications Reviewed patient Home Medication Reconciliation performed by pharmacy medication reconciliations communications technician and/or nursing. Patients Allergies have been reviewed. Allergies Allergies Coded Allergies No Known Drug Allergies (Covnczxhth53/9/20) Past Wtgsyit-Oflbhm-Vbkpci Hx Patient Social History Tobacco Use?: No Smoking Status: Former Smoker Smokeless Tobacco Frequency: Never a User Use of E-Cig and/or Vaping dev: No Substance use?: No Alcohol Use?: No Pt feels they are or have been: No Immunizations Up To Date Date of Influenza Vaccine: May 01, 2020 First/Initial COVID19 Vaccinat: unknown Second COVID19 Vaccination Angelo: UNKNOWN Tetanus Booster (TDap): Unknown Date of Pneumonia Vaccine: May 15, 2017 Seasonal Allergies Seasonal Allergies: No Current Status Communicates: Verbally Primary Language: Yi Preferred Spoken Language: Yi Is interpretation needed?: No Implanted or Applied Medical D: Stents Past Medical History Surgeries: Coronary Stent, Hysterectomy, Tonsillectomy Coronary Artery Disease, Hypertension Stroke Hypothyroidsim Review of Systems Constitutional: see HPI Physical Exam Physical Exam Vital Signs Vital Signs - First Documented 10/23/22 20:43 Temp 36.7 Pulse 94 Resp 18 B/P (MAP) 190/88 (122) Pulse Ox 97 O2 Delivery Room Air Capillary Refill : Less Than 3 Seconds Height, Weight, BMI Height: '" Weight: lbs. oz. kg; 15.71 BMI Method: General Appearance: No Apparent Distress, Thin Respiratory: Chest Non Tender, Lungs Clear, Normal Breath Sounds, No Accessory Muscle Use, No Respiratory Distress Cardiovascular: Regular Rate, Rhythm, No Edema, No Gallop, No JVD, No Murmur, Normal Peripheral Pulses Gastrointestinal: Normal Bowel Sounds, No Organomegaly, No Pulsatile Mass, Non Tender, Soft Extremity: Other (Right forearm purpuric from the elbow down with 2 hematomas over the volar aspect of her forearm nontender no evidence for skin breakdown radial pulses 2+ fingers warm and no swelling in the fingers. Normal motion of the fingers. Normal wrist mobility. Normal elbow mobility.) Results Results/Procedures Labs Patient resulted labs reviewed. Short Stay Diagnosis Discharge Diagnosis-Short Stay Admission Diagnosis 1. Right forearm hematoma from minimal trauma. 2. Coronary artery disease. 3. Hypertension Final Discharge Diagnosis Same as admission diagnosis. Conclusion Plan Patient was admitted over concerns of increasing bleeding leading to enough skin tension to cause skin breakdown or compartment syndrome. Swelling went down significantly with compression and ice with resolution of significant pain. Will discontinue clopidogrel as it is now been 6 months considering her advanced age tissue paper thin skin. We will have her continue a baby aspirin daily and her home blood pressure medication no other changes were recommended. Copy Copies To 1: BRISEIDA,FERCHO NICHOLS,ELLIOT Boles MD October 24, 2022 09:10
[2022-10-24] MEDS ORDERED: ASPI-933 PO (09:15)
[2022-10-25] MEDS ORDERED: LEVOTHYROXINE 75 MCG (LEVOTHROID) TABLET PO SCH (06:30)
== END 2022-10-24 09:11 | disposition home or self-care (01) ==
LOC: EDUNIT# 20:36 → ER FS 20:37 → 4TH 22:44 → UNDOADMOB 22:44 → 4TH 22:54 → UNDODISOB 10-24 09:11
PROVIDERS: ADMIT Internal Medicine; ATTEND Internal Medicine
DX: S50.11XA Contusion of right forearm, initial encounter (principal); I25.10 Atherosclerotic heart disease of native coronary artery without angina pectoris; I10 Essential (primary) hypertension; W54.8XXA Other contact with dog, initial encounter; Z87.891 Personal history of nicotine dependence; Y93.K9 Activity, other involving animal care
CPT/HCPCS: 99283; G0378